=== PATIENT | female | born 1950 | race Two or more races ===

== ENCOUNTER 2022-01-19 09:55 | Inpatient (IN) | payer MEDICARE, MEDICAID ==
[~2022-01-19] VITALS: Ht 149.9 cm; Wt 100.0 kg
[2022-01-19] MEDS ORDERED: SODIUM CHLORIDE 0.9% 1,000 ML IV ONE ×2 (10:15)
[2022-01-19] MEDS ORDERED: DOPamine 1600MCG/ML D5W 250 ML IV ONE (10:30)
[2022-01-19 10:36] LABS: Basophils # (auto) 0 10 ^3/uL (0-0.2); Eosinophils # (auto) 0.1 10 ^3/uL (0-0.8); Mean Corpuscular Hemoglobin 22.5 pg (28.0-32.0); Mean Corpuscular Volume 71.5 fL (80.0-100.0); Monocytes # (auto) 0.4 10 ^3/uL (0-1.3)
[2022-01-19 10:38] LABS: Basophils % (auto) 0.3 % (0.0-2.0); Eosinophils % (auto) 1.7 % (0.0-7.0); Hemoglobin 10.4 g/dL (12.2-16.2); Lymphocytes # (auto) 1.6 10 ^3/uL (0.4-5.4); Mean Corpuscular Hgb Conc. 31.5 g/dL (32.0-36.0); Neutrophils # (auto) 5.8 10 ^3/uL (1.6-8.6); Nucleated Red Blood Cells % 0.1 %; Red Blood Cells 4.61 10^6/uL (4.0-5.20)
[2022-01-19 10:54] LABS: Albumin 3.3 g/dL (3.4-5.0); Potassium 4.2 mmol/L (3.5-5.1)
[2022-01-19 10:58] LABS: Bilirubin, Total 0.5 mg/dL (0.2-1.0); Total Protein 6.6 g/dL (6.4-8.2)
[2022-01-19 11:36] LABS: Urine WBC None Seen /hpf (0 - 5)
[2022-01-19 11:44] LABS: Urine Bacteria FEW /hpf (None Seen); Urine Blood TRACE /uL (Negative); Urine Specific Gravity 1.022 (1.001-1.035)
[2022-01-19] MEDS ORDERED: HYDROcodone-ACET 10/325MG TAB PO ONE (12:15)
[2022-01-19] MEDS ORDERED: ONDANSETRON ODT 4 MG TAB PO ONE (13:30)
[2022-01-19] MEDS ORDERED: DEXTROSE (50%) 50ML SYRG IV PRN (15:15)
[2022-01-19] MEDS ORDERED: NITROGLYCERIN 0.4 MG SL TAB SL PRN (15:15)
[2022-01-19] MEDS ORDERED: MORPHINE SULFATE INJECTION 2 MG/ML SYRG IV PRN ×2 (15:15→17:15)
[2022-01-19] MEDS: ACCU-CHEK COMFORT CURVE STRIP VI SCH ×2 (17:14→23:12)
[2022-01-19] MEDS ORDERED: DOCUSATE SOD 100 MG CAP PO PRN (17:15)
[2022-01-19] MEDS ORDERED: hydrALAZINE HCL 20 MG/ML VL IV PRN (17:15)
[2022-01-19] MEDS ORDERED: ONDANSETRON HCL 4 MG/2 ML VIAL IV PRN (17:15)
[2022-01-19] MEDS ORDERED: SUCRALFATE 1 GM/10 ML ORAL SUSP PO ONE (17:15)
[2022-01-19] MEDS ORDERED: HYDROcodone-ACET 5/325MG TAB PO PRN (17:15)
[2022-01-19] MEDS ORDERED: LACTULOSE 20Gm/30ML SOLN PO PRN (17:15)
[2022-01-19] MEDS ORDERED: IPRATROPIUM BROM 0.5 MG/2.5ML INH SOL NEB ONE (17:15)
[2022-01-19] MEDS ORDERED: MULTIPLE VITAMINS W/ MINERALS TAB PO ONE (17:15)
[2022-01-19] MEDS ORDERED: FERROUS SULFATE 325mg EC TAB PO ONE (17:15)
[2022-01-19] MEDS ORDERED: PANTOPRAZOLE 40 MG/10 ML VIAL INJ IV ONE (17:15)
[2022-01-19] MEDS ORDERED: FOLIC ACID 1 MG TAB PO ONE (17:15)
[2022-01-19] MEDS ORDERED: HYDROcodone-ACET 5/325MG TAB PO ONE (17:15)
[2022-01-19] MEDS: InsuLIN REG 1unit/0.01ml Soln (100units/ml) SC SCH (17:20)
[2022-01-19] MEDS ORDERED: hydrALAZINE HCL 20 MG/ML VL ONE (17:25)
[2022-01-19] MEDS ORDERED: cefTRIAXone 1GM/50ML D5W 50 ML IV ONE (17:45)
[2022-01-19] MEDS ORDERED: DOXYCYCLINE 100MG/250ML 250 ML IV ONE (17:45)
[2022-01-19] MEDS ORDERED: IPRATROPIUM BROM 0.5 MG/2.5ML INH SOL NEB SCH (18:00)
[2022-01-19] MEDS: FERROUS SULFATE 325mg EC TAB PO SCH (18:00)
[2022-01-19 19:36] LABS: Magnesium 1.7 mg/dL (1.6-2.6)
[2022-01-19 19:38] LABS: INR 1.16 (0.9-1.15); Partial Thromboplastin Time 27.3 sec (23.6-33.0); Phosphorus 3.5 mg/dL (2.5-4.90)
[2022-01-19] MEDS ORDERED: LISI2.5T47 PO (19:44)
[2022-01-19] MEDS ORDERED: ATE50T PO (19:45)
[2022-01-19] MEDS ORDERED: METF-370 PO (19:46)
[2022-01-19] MEDS ORDERED: RIVA10TA2 PO (19:47)
[2022-01-19 22:00] VITALS: BP 129/62
[2022-01-19] MEDS ORDERED: InsuLIN REG 1unit/0.01ml Soln (100units/ml) SC SCH (22:00)
[2022-01-19] MEDS: SUCRALFATE 1 GM/10 ML ORAL SUSP PO SCH (23:11)
[2022-01-19] MEDS: FUROSEMIDE 20 MG/2 ML VIAL IV SCH (23:11)
[2022-01-19] MEDS: DOXYCYCLINE 100MG/250ML 250 ML IV SCH (23:11)
[2022-01-19] MEDS: ATORVASTATIN 20 MG TAB PO SCH (23:12)
[2022-01-20] VITALS (54 sets, daily range): BP systolic 73–121; BP diastolic 27–70
[2022-01-20] MEDS: FUROSEMIDE 20 MG/2 ML VIAL IV SCH (05:54)
[2022-01-20] MEDS: SUCRALFATE 1 GM/10 ML ORAL SUSP PO SCH ×2 (05:55→11:14)
[2022-01-20] MEDS: InsuLIN REG 1unit/0.01ml Soln (100units/ml) SC SCH ×3 (06:06→20:40)
[2022-01-20] MEDS: ACCU-CHEK COMFORT CURVE STRIP VI SCH ×4 (06:56→23:58)
[2022-01-20 06:58] LABS: Hematocrit 38.3 % (36.0-46.0)
[2022-01-20 07:00] LABS: Hemoglobin 11.1 g/dL (12.2-16.2); Mean Corpuscular Hemoglobin 22.6 pg (28.0-32.0); Mean Corpuscular Volume 77.9 fL (80.0-100.0); Red Blood Cells 4.92 10^6/uL (4.0-5.20); Red Cell Distribution Width 17.4 % (11.8-14.3); White Blood Cell 23.6 10^3/uL (4.4-10.8)
[2022-01-20 07:01] LABS: Basophils % (manual) 0 (0.0-2.0); Blast Cells 0; Eosinophils % (manual) 0 (0-7); Metamyelocytes % 0; Myelocytes % 0; Promyelocytes % 0; Reactive Lymphocytes 0
[2022-01-20] MEDS: INSULIN LANTUS (GLARGINE) 1 /0.01ml (100units/ml) SC SCH ×2 (07:02→13:15)
[2022-01-20 07:04] LABS: INR 1.48 (0.9-1.15); Partial Thromboplastin Time 38.4 sec (23.6-33.0)
[2022-01-20 07:13] LABS: Potassium 4.6 mmol/L (3.5-5.1)
[2022-01-20] MEDS: DOXYCYCLINE 100MG/250ML 250 ML IV SCH (07:18)
[2022-01-20 07:27] LABS: Albumin 3.2 g/dL (3.4-5.0); BUN/Creatinine Ratio 8.7; Bilirubin, Total 0.9 mg/dL (0.2-1.0); CRP High Sensitivity 6.26 mg/dL (< 0.3); Calcium 8.7 mg/dL (8.5-10.1); Magnesium 2.4 mg/dL (1.6-2.6); Phosphorus 7.6 mg/dL (2.5-4.90); Total Protein 6.7 g/dL (6.4-8.2); Uric Acid 8.8 mg/dL (2.6-6.0)
[2022-01-20 07:40] LABS: % Iron Saturation 4.4 % (15-50)
[2022-01-20] MEDS: FERROUS SULFATE 325mg EC TAB PO SCH ×2 (08:00→11:14)
[2022-01-20 08:33] LABS: Band Neutrophils % (manual) 5; Lymphocytes % (manual) 8 (10.0-50.0); Monocytes % (manual) 6 (0-12)
[2022-01-20] MEDS ORDERED: cefTRIAXone 1GM/50ML D5W 50 ML IV SCH (09:00)
[2022-01-20] MEDS ORDERED: CYANOCOBALAMIN 500 MCG TAB PO SCH (10:00)
[2022-01-20] MEDS ORDERED: FOLIC ACID 1 MG TAB PO SCH (10:00)
[2022-01-20] MEDS ORDERED: BENAZEPRIL HCL 10 MG TAB PO SCH (10:00)
[2022-01-20] MEDS: CHOLECALCIFEROL (VITD3) 2,000 UNIT CAP/TAB PO SCH (10:00)
[2022-01-20] MEDS ORDERED: THIAMINE HCL 100 MG TAB PO SCH (10:00)
[2022-01-20] MEDS ORDERED: MULTIPLE VITAMINS W/ MINERALS TAB PO SCH (10:00)
[2022-01-20] MEDS: PANTOPRAZOLE 40 MG/10 ML VIAL INJ IV SCH (10:16)
[2022-01-20] MEDS: ASPirin 81 mg TAB PO SCH (10:16)
[2022-01-20] MEDS ORDERED: DEXTROSE (50%) 50ML SYRG IV PRN (11:15)
[2022-01-20] MEDS ORDERED: SODIUM CHLORIDE 0.9% 1,000 ML IV SCH (12:30)
[2022-01-20] MEDS ORDERED: ENOXAPARIN SOD 100 MG/1 ML SYRINGE SC ONE (12:30)
[2022-01-20] MEDS ORDERED: SODIUM CHLORIDE 0.9% 250 ML IV ONE (12:30)
[2022-01-20 12:44] LABS: Amphetamine Screen, Urine NEGATIVE (NEGATIVE); Barbiturate Scree,Urine NEGATIVE (NEGATIVE); Benzodiazephine Screen, Urine NEGATIVE (NEGATIVE); Cannabinoid Screen, Urine NEGATIVE (NEGATIVE); Cocaine Screen, Urine NEGATIVE (NEGATIVE); Opiate Scree,Urine NEGATIVE (NEGATIVE); Phencyclidine Screen, Urine NEGATIVE (NEGATIVE)
[2022-01-20] MEDS ORDERED: INSULIN LANTUS (GLARGINE) 1 /0.01ml (100units/ml) SC ONE ×2 (12:45→14:00)
[2022-01-20] MEDS ORDERED: ETOMIDATE (2MG/ML) 20ML VIAL IV ONE ×2 (13:27→14:00)
[2022-01-20] MEDS ORDERED: SUCCINYLCHOLINE CHLORIDE 20 MG/ML 10ML VIAL IV ONE ×2 (13:27→14:00)
[2022-01-20] MEDS ORDERED: ENOXAPARIN SOD 80 MG/0.8ML SYRINGE SC ONE (14:00)
[2022-01-20] MEDS ORDERED: NOREPINEPHRINE 8 MG/250ML KIT 250 ML IV ONE (14:01)
[2022-01-20] MEDS ORDERED: PROPOFOL 100 ML IV ONE (14:01)
[2022-01-20] MEDS ORDERED: MEROPENEM 500MG IVPB 50 ML IV ONE (14:30)
[2022-01-20] MEDS ORDERED: SODIUM BICARBONATE 50ML VIAL 150 ML in D5W 5% 1,000 ML IV SCH (15:45)
[2022-01-20] MEDS ORDERED: HEPARIN SODIUM (PORCINE) 5000 UNITS/ML 1ML VIAL IV ONE (15:45)
[2022-01-20] MEDS ORDERED: HEPARIN DRIP/D5W 100UNITS/ML 250 ML IV SCH (16:30)
[2022-01-20] MEDS ORDERED: SODIUM BICARBONATE 8.4 % INJ 50ML VIAL IV ONE (16:31)
[2022-01-20 17:17] LABS: Basophils # (auto) 0.1 10 ^3/uL (0-0.2); Basophils % (auto) 0.3 % (0.0-2.0); Eosinophils # (auto) 0 10 ^3/uL (0-0.8); Hematocrit 34.2 % (36.0-46.0); Hemoglobin 10.1 g/dL (12.2-16.2); Lymphocytes % (auto) 5.6 % (10.0-50.0); Mean Corpuscular Hemoglobin 21.8 pg (28.0-32.0); Mean Corpuscular Hgb Conc. 29.5 g/dL (32.0-36.0); Mean Corpuscular Volume 73.9 fL (80.0-100.0); Monocytes # (auto) 0.8 10 ^3/uL (0-1.3); Monocytes % (auto) 4.4 % (0.0-12.0); Neutrophils # (auto) 15.6 10 ^3/uL (1.6-8.6); Neutrophils % (auto) 89.7 % (37.0-80.0); Nucleated Red Blood Cells % 0.1 %; Red Blood Cells 4.63 10^6/uL (4.0-5.20); Red Cell Distribution Width 17.2 % (11.8-14.3); White Blood Cell 17.4 10^3/uL (4.4-10.8)
[2022-01-20 18:22] LABS: INR 1.94 (0.9-1.15); Partial Thromboplastin Time 44.4 sec (23.6-33.0)
[2022-01-20] MEDS: MIDAZOLAM DRIP 50 mg/50mL 50 ML IV SCH (19:30)
[2022-01-20] MEDS: fentaNYL Drip 2500mCg/250mlNS 250 ML IV SCH (20:39)
[2022-01-20] MEDS: MEROPENEM 500MG IVPB 50 ML IV SCH (20:48)
[2022-01-20] MEDS: ATORVASTATIN 20 MG TAB PO SCH (22:00)
[2022-01-21] VITALS (106 sets, daily range): BP systolic 85–143; BP diastolic 29–101
[2022-01-21] MEDS: SODIUM BICARBONATE 50ML VIAL 150 ML in SOD CHL 0.45% 1,000 ML IV SCH ×2 (00:12→10:20)
[2022-01-21] MEDS: NOREPINEPHRINE 8 MG/250ML KIT 250 ML IV SCH ×3 (01:55→23:15)
[2022-01-21] MEDS ORDERED: HEPARIN DRIP/D5W 100UNITS/ML 250 ML IV SCH ×2 (02:00)
[2022-01-21] MEDS: HEPARIN DRIP/D5W 100UNITS/ML 250 ML IV SCH ×2 (02:13→15:07)
[2022-01-21] MEDS ORDERED: ACETAMINOPHEN 650 MG RECT SUPP PR PRN (04:00)
[2022-01-21] MEDS: ACCU-CHEK COMFORT CURVE STRIP VI SCH ×5 (04:09→20:25)
[2022-01-21] MEDS: InsuLIN REG 1unit/0.01ml Soln (100units/ml) SC SCH ×6 (04:10→20:25)
[2022-01-21] MEDS: PROPOFOL 100 ML IV SCH ×3 (04:31→15:06)
[2022-01-21 05:03] LABS: Eosinophils # (auto) 0 10 ^3/uL (0-0.8); Hemoglobin 9.8 g/dL (12.2-16.2); Lymphocytes # (auto) 1.4 10 ^3/uL (0.4-5.4); Monocytes # (auto) 0.7 10 ^3/uL (0-1.3); Neutrophils # (auto) 10.2 10 ^3/uL (1.6-8.6); White Blood Cell 12.4 10^3/uL (4.4-10.8)
[2022-01-21 05:05] LABS: Basophils # (auto) 0.1 10 ^3/uL (0-0.2); Basophils % (auto) 0.4 % (0.0-2.0); Eosinophils % (auto) 0.2 % (0.0-7.0); Lymphocytes % (auto) 11.3 % (10.0-50.0); Mean Corpuscular Hemoglobin 22.4 pg (28.0-32.0); Mean Corpuscular Hgb Conc. 31.5 g/dL (32.0-36.0); Monocytes % (auto) 5.8 % (0.0-12.0); Neutrophils % (auto) 82.3 % (37.0-80.0); Nucleated Red Blood Cells % 0.7 %; Red Blood Cells 4.36 10^6/uL (4.0-5.20); Red Cell Distribution Width 16.9 % (11.8-14.3)
[2022-01-21 05:18] LABS: Albumin 2.8 g/dL (3.4-5.0); Calcium 8.2 mg/dL (8.5-10.1); Magnesium 1.7 mg/dL (1.6-2.6)
[2022-01-21 05:20] LABS: Lactic Acid w/Reflex 6.6 mmol/L (0.4-2.0)
[2022-01-21 05:29] LABS: Bilirubin, Total 0.7 mg/dL (0.2-1.0); Total Protein 5.7 g/dL (6.4-8.2)
[2022-01-21] MEDS: MEROPENEM 500MG IVPB 50 ML IV SCH ×2 (06:19→18:24)
[2022-01-21] MEDS: INSULIN LANTUS (GLARGINE) 1 /0.01ml (100units/ml) SC SCH ×2 (06:19→22:29)
[2022-01-21 06:32] LABS: BUN/Creatinine Ratio 10.3
[2022-01-21 09:19] LABS: INR 1.66 (0.9-1.15); Partial Thromboplastin Time 52.8 sec (23.6-33.0)
[2022-01-21] MEDS: PANTOPRAZOLE 40 MG/10 ML VIAL INJ IV SCH (10:19)
[2022-01-21] MEDS: CHOLECALCIFEROL (VITD3) 2,000 UNIT CAP/TAB PO SCH (10:19)
[2022-01-21] MEDS: ASPirin 81 mg TAB PO SCH (10:19)
[2022-01-21] MEDS ORDERED: FUROSEMIDE 20 MG/2 ML VIAL IV ONE (10:45)
[2022-01-21] MEDS ORDERED: SODIUM BICARBONATE 50ML VIAL 150 ML in SOD CHL 0.45% 1,000 ML IV SCH (11:15)
[2022-01-21] MEDS ORDERED: DEXTROSE (50%) 50ML SYRG IV PRN (12:30)
[2022-01-21] MEDS ORDERED: MAGNESIUM SULFATE 1GM/100ML 100 ML IV ONE (12:30)
[2022-01-21] MEDS ORDERED: VANCOMYCIN PER PHARMACY 0 MG IV SCH (12:30)
[2022-01-21] MEDS ORDERED: VANCOMYCIN 1GM/250ML 250 ML IV ONE (13:00)
[2022-01-21] MEDS: fentaNYL Drip 2500mCg/250mlNS 250 ML IV SCH (13:41)
[2022-01-21] MEDS: MIDAZOLAM DRIP 50 mg/50mL 50 ML IV SCH (13:41)
[2022-01-21 16:44] LABS: INR 1.51 (0.9-1.15)
[2022-01-21] MEDS: ACETAMINOPHEN 650 mg PER 20.3 mL UD GT PRN ×2 (16:54→23:08)
[2022-01-21] MEDS: SODIUM CHLORIDE 0.9% 1,000 ML IV SCH ×2 (16:55→22:00)
[2022-01-21] MEDS ORDERED: FUROSEMIDE 40 MG/4 ML VIAL IV ONE (17:00)
[2022-01-21 23:51] LABS: INR 1.49 (0.9-1.15); Partial Thromboplastin Time 69.6 sec (23.6-33.0)
[2022-01-22] VITALS (102 sets, daily range): BP systolic 92–149; BP diastolic 31–69
[2022-01-22] MEDS: InsuLIN REG 1unit/0.01ml Soln (100units/ml) SC SCH ×6 (00:02→20:09)
[2022-01-22] MEDS: ACCU-CHEK COMFORT CURVE STRIP VI SCH ×6 (00:02→20:09)
[2022-01-22] MEDS: SODIUM CHLORIDE 0.9% 1,000 ML IV SCH ×2 (02:43→18:22)
[2022-01-22] MEDS: PROPOFOL 100 ML IV SCH ×2 (04:10→13:48)
[2022-01-22 05:09] LABS: Basophils # (auto) 0.1 10 ^3/uL (0-0.2); Lymphocytes # (auto) 1.7 10 ^3/uL (0.4-5.4)
[2022-01-22 05:12] LABS: Basophils % (auto) 0.7 % (0.0-2.0); Eosinophils # (auto) 0 10 ^3/uL (0-0.8); Eosinophils % (auto) 0.3 % (0.0-7.0); Hematocrit 31.1 % (36.0-46.0); Hemoglobin 9.6 g/dL (12.2-16.2); Lymphocytes % (auto) 9.6 % (10.0-50.0); Mean Corpuscular Hemoglobin 22.4 pg (28.0-32.0); Mean Corpuscular Volume 72.3 fL (80.0-100.0); Monocytes # (auto) 0.9 10 ^3/uL (0-1.3); Monocytes % (auto) 4.9 % (0.0-12.0); Neutrophils # (auto) 14.9 10 ^3/uL (1.6-8.6); Neutrophils % (auto) 84.5 % (37.0-80.0); Nucleated Red Blood Cells % 1.4 %; Red Blood Cells 4.31 10^6/uL (4.0-5.20); Red Cell Distribution Width 17.8 % (11.8-14.3); White Blood Cell 17.6 10^3/uL (4.4-10.8)
[2022-01-22 05:25] LABS: Albumin 2.4 g/dL (3.4-5.0); Anion Gap 16 (5-15); Blood Urea Nitrogen 42 mg/dL (7-18); Calcium 7.8 mg/dL (8.5-10.1); Carbon Dioxide 22 mmol/L (21-32); Chloride 100 mmol/L (98-107); Glucose 144 mg/dL (74-106); Magnesium 2.2 mg/dL (1.6-2.6); Potassium 4.3 mmol/L (3.5-5.1); Sodium 138 mmol/L (136-145)
[2022-01-22 05:27] LABS: GFR African American 13 mL/min; GFR Non-African American 11 mL/min
[2022-01-22 05:32] LABS: Lactic Acid w/Reflex 9.4 mmol/L (0.4-2.0)
[2022-01-22 05:37] LABS: Alkaline Phosphatase 127 U/L (45-117); Bilirubin, Total 1.9 mg/dL (0.2-1.0); Total Protein 5.5 g/dL (6.4-8.2)
[2022-01-22] MEDS: MEROPENEM 500MG IVPB 50 ML IV SCH ×2 (05:48→18:21)
[2022-01-22] MEDS: HEPARIN DRIP/D5W 100UNITS/ML 250 ML IV SCH ×2 (05:57→17:33)
[2022-01-22 06:23] LABS: BUN/Creatinine Ratio 9.8
[2022-01-22 07:46] LABS: INR 2.39 (0.9-1.15)
[2022-01-22 08:19] LABS: Aspartate Aminotransferase 11153 U/L (15-37)
[2022-01-22 08:41] LABS: Partial Thromboplastin Time > 139.0 sec (23.6-33.0)
[2022-01-22] MEDS: ACETAMINOPHEN 650 mg PER 20.3 mL UD GT PRN (09:13)
[2022-01-22] MEDS: PANTOPRAZOLE 40 MG/10 ML VIAL INJ IV SCH (09:14)
[2022-01-22] MEDS: NOREPINEPHRINE 8 MG/250ML KIT 250 ML IV SCH ×2 (09:39→18:58)
[2022-01-22] MEDS ORDERED: HEPARIN DRIP/D5W 100UNITS/ML 250 ML IV SCH (09:43)
[2022-01-22 10:21] LABS: Alanine Aminotransferase > 3510 U/L (13-56)
[2022-01-22] MEDS ORDERED: BUMETANIDE 2.5mg/10ml (0.25 mg/ml) INJ IV ONE (10:30)
[2022-01-22] MEDS ORDERED: DIGOXIN (250MCG/ML) 2 ML AMPULE IV ONE (10:30)
[2022-01-22] MEDS ORDERED: Glucerna 1.2 Cal 1Liter BOTTLE GT SCH (10:45)
[2022-01-22] MEDS: FUROSEMIDE INJECTION 100 MG in D5W 5% 100 ML IV SCH ×3 (13:20→21:46)
[2022-01-22] MEDS: fentaNYL Drip 2500mCg/250mlNS 250 ML IV SCH (14:00)
[2022-01-22] MEDS: MIDAZOLAM DRIP 50 mg/50mL 50 ML IV SCH (14:00)
[2022-01-22 17:12] LABS: INR 1.49 (0.9-1.15)
[2022-01-22 17:24] LABS: Partial Thromboplastin Time 81.1 sec (23.6-33.0)
[2022-01-22] MEDS: INSULIN LANTUS (GLARGINE) 1 /0.01ml (100units/ml) SC SCH (21:44)
[2022-01-23] VITALS (105 sets, daily range): BP systolic 78–135; BP diastolic 36–65
[2022-01-23] MEDS: ACCU-CHEK COMFORT CURVE STRIP VI SCH ×7 (00:23→23:44)
[2022-01-23] MEDS: InsuLIN REG 1unit/0.01ml Soln (100units/ml) SC SCH ×7 (00:27→23:42)
[2022-01-23 01:05] LABS: INR 1.49 (0.9-1.15)
[2022-01-23 01:12] LABS: Partial Thromboplastin Time 76.2 sec (23.6-33.0)
[2022-01-23] MEDS: FUROSEMIDE INJECTION 100 MG in D5W 5% 100 ML IV SCH ×3 (03:25→09:31)
[2022-01-23] MEDS: HEPARIN DRIP/D5W 100UNITS/ML 250 ML IV SCH (03:33)
[2022-01-23] MEDS: SODIUM CHLORIDE 0.9% 1,000 ML IV SCH ×2 (04:00→15:00)
[2022-01-23] MEDS: MEROPENEM 500MG IVPB 50 ML IV SCH ×2 (06:23→18:35)
[2022-01-23 07:02] LABS: INR 1.4 (0.9-1.15); Partial Thromboplastin Time 59.2 sec (23.6-33.0)
[2022-01-23 07:04] LABS: Albumin 2.3 g/dL (3.4-5.0); BUN/Creatinine Ratio 10.7; Calcium 7.4 mg/dL (8.5-10.1); Potassium 4.7 mmol/L (3.5-5.1)
[2022-01-23 07:06] LABS: Lactic Acid w/Reflex 4.1 mmol/L (0.4-2.0)
[2022-01-23 07:12] LABS: Bilirubin, Total 2.6 mg/dL (0.2-1.0); Total Protein 5.3 g/dL (6.4-8.2)
[2022-01-23 07:34] LABS: Eosinophils # (auto) 0.1 10 ^3/uL (0-0.8); White Blood Cell 14.5 10^3/uL (4.4-10.8)
[2022-01-23 07:37] LABS: Basophils # (auto) 0.1 10 ^3/uL (0-0.2); Basophils % (auto) 0.5 % (0.0-2.0); Eosinophils % (auto) 0.8 % (0.0-7.0); Hemoglobin 9.1 g/dL (12.2-16.2); Lymphocytes # (auto) 0.8 10 ^3/uL (0.4-5.4); Lymphocytes % (auto) 5.7 % (10.0-50.0); Mean Corpuscular Hemoglobin 22.5 pg (28.0-32.0); Mean Corpuscular Hgb Conc. 31.4 g/dL (32.0-36.0); Mean Corpuscular Volume 71.6 fL (80.0-100.0); Monocytes # (auto) 0.7 10 ^3/uL (0-1.3); Monocytes % (auto) 4.6 % (0.0-12.0); Neutrophils # (auto) 12.8 10 ^3/uL (1.6-8.6); Neutrophils % (auto) 88.4 % (37.0-80.0); Nucleated Red Blood Cells % 1.7 %; Red Blood Cells 4.05 10^6/uL (4.0-5.20); Red Cell Distribution Width 17.5 % (11.8-14.3)
[2022-01-23] MEDS ORDERED: METF-929 PO ×2 (10:04→10:06)
[2022-01-23] MEDS ORDERED: LISI40TA11 PO (10:04)
[2022-01-23] MEDS ORDERED: ATEN-60 PO (10:04)
[2022-01-23] MEDS ORDERED: RIVA20TA PO (10:04)
[2022-01-23] MEDS ORDERED: GLIP5TAB12 PO (10:06)
[2022-01-23] MEDS ORDERED: CHOL100055 PO (10:06)
[2022-01-23] MEDS ORDERED: DOPamine 1600MCG/ML D5W 250 ML IV SCH (10:30)
[2022-01-23] MEDS: PANTOPRAZOLE 40 MG/10 ML VIAL INJ IV SCH (10:42)
[2022-01-23] MEDS: BUMETANIDE INJECTION 25 MG in GIVE UN-DILUTED 0 ML IV SCH (11:46)
[2022-01-23] MEDS: LIDOCAINE 1% (LOCAL ANESTH.) PF 5ml SDV ID ONE ×2 (13:00→15:15)
[2022-01-23] MEDS: MIDAZOLAM DRIP 50 mg/50mL 50 ML IV SCH (14:00)
[2022-01-23] MEDS: fentaNYL Drip 2500mCg/250mlNS 250 ML IV SCH (14:00)
[2022-01-23 14:17] LABS: INR 1.37 (0.9-1.15); Partial Thromboplastin Time 53.9 sec (23.6-33.0)
[2022-01-23] MEDS: PROPOFOL 100 ML IV SCH ×2 (18:35)
[2022-01-23 18:51] LABS: INR 1.34 (0.9-1.15); Partial Thromboplastin Time 47.6 sec (23.6-33.0)
[2022-01-23] MEDS: INSULIN LANTUS (GLARGINE) 1 /0.01ml (100units/ml) SC SCH (21:58)
[2022-01-23] MEDS: SODIUM CHLOR 0.9% PF (SALINE LOCK) 10ML VIAL/SYR IV SCH (22:02)
[2022-01-24] VITALS (102 sets, daily range): BP systolic 86–145; BP diastolic 30–55
[2022-01-24 01:47] LABS: INR 1.26 (0.9-1.15); Partial Thromboplastin Time 54.7 sec (23.6-33.0)
[2022-01-24] MEDS: ACCU-CHEK COMFORT CURVE STRIP VI SCH ×6 (03:46→23:46)
[2022-01-24] MEDS: InsuLIN REG 1unit/0.01ml Soln (100units/ml) SC SCH ×6 (03:55→23:42)
[2022-01-24] MEDS: SODIUM CHLORIDE 0.9% 1,000 ML IV SCH ×2 (04:11→20:06)
[2022-01-24 05:46] LABS: Protein, Urine 125.8 mg/dL (0.0-11.9)
[2022-01-24] MEDS: MEROPENEM 500MG IVPB 50 ML IV SCH (06:14)
[2022-01-24] MEDS: HEPARIN DRIP/D5W 100UNITS/ML 250 ML IV SCH (06:15)
[2022-01-24] MEDS: NOREPINEPHRINE 8 MG/250ML KIT 250 ML IV SCH (06:16)
[2022-01-24] MEDS: PROPOFOL 100 ML IV SCH (06:16)
[2022-01-24 06:18] LABS: Monocytes % (auto) 7.5 % (0.0-12.0)
[2022-01-24 06:19] LABS: Basophils # (auto) 0.1 10 ^3/uL (0-0.2); Basophils % (auto) 0.6 % (0.0-2.0); Eosinophils # (auto) 0.1 10 ^3/uL (0-0.8); Eosinophils % (auto) 0.4 % (0.0-7.0); Hematocrit 27.4 % (36.0-46.0); Hemoglobin 8.7 g/dL (12.2-16.2); Lymphocytes # (auto) 1.7 10 ^3/uL (0.4-5.4); Lymphocytes % (auto) 11.8 % (10.0-50.0); Mean Corpuscular Hemoglobin 22.4 pg (28.0-32.0); Mean Corpuscular Hgb Conc. 31.7 g/dL (32.0-36.0); Mean Corpuscular Volume 70.5 fL (80.0-100.0); Monocytes # (auto) 1.1 10 ^3/uL (0-1.3); Neutrophils # (auto) 11.3 10 ^3/uL (1.6-8.6); Neutrophils % (auto) 79.7 % (37.0-80.0); Red Blood Cells 3.88 10^6/uL (4.0-5.20); Red Cell Distribution Width 17.7 % (11.8-14.3); White Blood Cell 14.1 10^3/uL (4.4-10.8)
[2022-01-24 06:30] LABS: INR 1.3 (0.9-1.15); Partial Thromboplastin Time 67.8 sec (23.6-33.0)
[2022-01-24 06:31] LABS: BUN/Creatinine Ratio 11.6; Calcium 7.4 mg/dL (8.5-10.1); Potassium 4.9 mmol/L (3.5-5.1)
[2022-01-24 06:34] LABS: Lactic Acid w/Reflex 2.8 mmol/L (0.4-2.0)
[2022-01-24 06:39] LABS: Bilirubin, Total 2.8 mg/dL (0.2-1.0); Total Protein 5.1 g/dL (6.4-8.2)
[2022-01-24 06:42] LABS: Nucleated Red Blood Cells % 3.1 %
[2022-01-24] MEDS: AMIODARONE HCL 200 MG TAB GT SCH ×2 (09:32→21:48)
[2022-01-24] MEDS: SODIUM CHLOR 0.9% PF (SALINE LOCK) 10ML VIAL/SYR IV SCH ×2 (09:32→21:48)
[2022-01-24] MEDS: PANTOPRAZOLE 40 MG/10 ML VIAL INJ IV SCH (09:32)
[2022-01-24] MEDS: fentaNYL Drip 2500mCg/250mlNS 250 ML IV SCH (09:33)
[2022-01-24] MEDS: BUMETANIDE INJECTION 25 MG in GIVE UN-DILUTED 0 ML IV SCH (11:19)
[2022-01-24 13:37] LABS: INR 1.33 (0.9-1.15)
[2022-01-24 13:40] LABS: Partial Thromboplastin Time 78.2 sec (23.6-33.0)
[2022-01-24] MEDS: MIDAZOLAM DRIP 50 mg/50mL 50 ML IV SCH (14:00)
[2022-01-24] MEDS ORDERED: FLUCONAZOLE 200MG/100ML 100 ML IV ONE (14:15)
[2022-01-24 20:29] LABS: INR 1.34 (0.9-1.15); Partial Thromboplastin Time 66.7 sec (23.6-33.0)
[2022-01-24] MEDS: INSULIN LANTUS (GLARGINE) 1 /0.01ml (100units/ml) SC SCH (21:48)
[2022-01-25] VITALS (88 sets, daily range): BP systolic 77–134; BP diastolic 29–77
[2022-01-25 02:39] LABS: INR 1.31 (0.9-1.15)
[2022-01-25] MEDS: InsuLIN REG 1unit/0.01ml Soln (100units/ml) SC SCH ×5 (03:54→20:14)
[2022-01-25] MEDS: ACCU-CHEK COMFORT CURVE STRIP VI SCH ×5 (03:54→20:21)
[2022-01-25 04:59] LABS: Hematocrit 29.2 % (36.0-46.0); Hemoglobin 9.1 g/dL (12.2-16.2); Mean Corpuscular Hemoglobin 22.3 pg (28.0-32.0); Mean Corpuscular Hgb Conc. 31.3 g/dL (32.0-36.0); Mean Corpuscular Volume 71.4 fL (80.0-100.0); Red Blood Cells 4.09 10^6/uL (4.0-5.20); Red Cell Distribution Width 18.1 % (11.8-14.3); White Blood Cell 13.5 10^3/uL (4.4-10.8)
[2022-01-25 05:16] LABS: Magnesium 2.2 mg/dL (1.6-2.6); Potassium 5.3 mmol/L (3.5-5.1)
[2022-01-25 05:18] LABS: Basophils % (manual) 0 (0.0-2.0); Blast Cells 0; Metamyelocytes % 0; Promyelocytes % 0; Reactive Lymphocytes 0
[2022-01-25 05:24] LABS: BUN/Creatinine Ratio 13.1; Bilirubin, Total 2.9 mg/dL (0.2-1.0); Total Protein 5.3 g/dL (6.4-8.2)
[2022-01-25 05:36] LABS: Band Neutrophils % (manual) 5; Eosinophils % (manual) 1 (0-7); Lymphocytes % (manual) 7 (10.0-50.0); Monocytes % (manual) 5 (0-12); Myelocytes % 1
[2022-01-25 08:11] LABS: INR 1.34 (0.9-1.15); Partial Thromboplastin Time 58.4 sec (23.6-33.0)
[2022-01-25] MEDS: SODIUM CHLORIDE 0.9% 1,000 ML IV SCH (09:37)
[2022-01-25] MEDS: AMIODARONE HCL 200 MG TAB GT SCH (09:37)
[2022-01-25] MEDS: PANTOPRAZOLE 40 MG/10 ML VIAL INJ IV SCH (09:38)
[2022-01-25] MEDS: SODIUM CHLOR 0.9% PF (SALINE LOCK) 10ML VIAL/SYR IV SCH (09:39)
[2022-01-25] MEDS ORDERED: MEROPENEM 500MG IVPB 50 ML IV SCH (10:00)
[2022-01-25] MEDS ORDERED: FLUCONAZOLE 200MG/100ML 100 ML IV SCH (10:00)
[2022-01-25] MEDS: BUMETANIDE INJECTION 25 MG in GIVE UN-DILUTED 0 ML IV SCH (11:02)
[2022-01-25] MEDS ORDERED: SODIUM ZIRCONIUM CYCL 10 GM PAK PO ONE (11:45)
[2022-01-25] MEDS: NOREPINEPHRINE 8 MG/250ML KIT 250 ML IV SCH (12:58)
[2022-01-25] MEDS: HEPARIN DRIP/D5W 100UNITS/ML 250 ML IV SCH (13:42)
[2022-01-25] MEDS ORDERED: SODIUM ZIRCONIUM CYCL 10 GM PAK GT SCH (14:00)
[2022-01-25] MEDS: PROPOFOL 100 ML IV SCH (14:00)
[2022-01-25] MEDS: fentaNYL Drip 2500mCg/250mlNS 250 ML IV SCH (14:00)
== END 2022-01-25 21:18 | DRG 720 ==
LOC: EDBD 09:55 → EDUNIT# 09:55 → ER 09:55 → TELE 15:05 → TELE-EAST 18:14 → ICU CENTRL 01-20 12:58
PROVIDERS: ADMIT Hospitalist; ATTEND Internal Medicine
PROC: 05HB33Z Insertion of Infusion Device into Right Basilic Vein, Percutaneous Approach (ICD-10-PCS; principal; 2022-01-20)
PROC: 5A1955Z Respiratory Ventilation, Greater than 96 Consecutive Hours (ICD-10-PCS; 2022-01-20)
PROC: 0BH17EZ Insertion of Endotracheal Airway into Trachea, Via Natural or Artificial Opening (ICD-10-PCS; 2022-01-20)
PROC: B54MZZA Ultrasonography of Right Upper Extremity Veins, Guidance (ICD-10-PCS; 2022-01-20)
PROC: 02HV33Z Insertion of Infusion Device into Superior Vena Cava, Percutaneous Approach (ICD-10-PCS; 2022-01-23)
DX: A41.9 Sepsis, unspecified organism (principal); K72.00 Acute and subacute hepatic failure without coma; I26.99 Other pulmonary embolism without acute cor pulmonale; I63.9 Cerebral infarction, unspecified; J96.01 Acute respiratory failure with hypoxia; J15.0 Pneumonia due to Klebsiella pneumoniae; N17.0 Acute kidney failure with tubular necrosis; G92.8 Other toxic encephalopathy; D68.4 Acquired coagulation factor deficiency; Z66 Do not resuscitate; G93.41 Metabolic encephalopathy; Z20.822 Contact with and (suspected) exposure to COVID-19; R57.9 Shock, unspecified; I11.0 Hypertensive heart disease with heart failure; I31.3 Pericardial effusion (noninflammatory); E88.09 Other disorders of plasma-protein metabolism, not elsewhere classified; I82.412 Acute embolism and thrombosis of left femoral vein; I50.9 Heart failure, unspecified; I48.0 Paroxysmal atrial fibrillation; R00.1 Bradycardia, unspecified; E66.01 Morbid (severe) obesity due to excess calories; E78.5 Hyperlipidemia, unspecified; M19.90 Unspecified osteoarthritis, unspecified site; J98.11 Atelectasis; B37.49 Other urogenital candidiasis; E11.9 Type 2 diabetes mellitus without complications; Z99.11 Dependence on respirator [ventilator] status
CPT/HCPCS: 36415; 36569; 36600; 70450; 71045; 76775; 80053; 80061; 80202; 80307; 81001; 82010; 82306; 82570; 82728; 82805; 82962; 83036; 83540; 83550; 83605; 83615; 83690; 83735; 83880; 84100; 84156; 84300; 84443; 84484; 84550; 85007; 85025; 85027; 85379; 85610; 85652; 85730; 86141; 87040; 87070; 87077; 87081; 87086; 87088; 87186; 87205; 93005; 93306; 93886; 93970; 94002; 94003; 95819; 96361; 96372; 96374; 99291; C9113; G0378; J0330; J0696; J1450; J1815; J2185; J2405; J2704; J3490; J7060; Q0162